=== PATIENT | male | born 1990 | race Caucasian/White ===

== ENCOUNTER 2019-02-01 12:06 | Emergency (ER) | payer OTHER ==
[~2019-02-01] VITALS: Ht 175 cm; Wt 72.0 kg
[2019-02-01 12:16] VITALS: BP 151/82; TEMP 98.8
[2019-02-01] MEDS ORDERED: BACTRIM DS 8001 TAB PO (13:25)
[2019-02-01 13:40] VITALS: PULSE 85
== END 2019-02-01 13:41 | disposition home or self-care (01) ==
LOC: COL.ER 12:06
DX: L03.113 Cellulitis of right upper limb (principal); F17.210 Nicotine dependence, cigarettes, uncomplicated; Z23 Encounter for immunization